=== PATIENT | male | born 1945 | race Caucasian/White ===

== ENCOUNTER 2017-05-04 11:39 | Emergency (ER) | payer OTHER ==
[2017-05-04 11:45] VITALS: BP 102/78; PULSE 68; RESP 18; TEMP 97.9; O2SAT 98
--- NOTE | 2017-05-04 12:18 | EDPHY ---
H & P Stated Complaint: L earache;fluid in ear; post nasal drip; sxs x 2 wks Time Seen by Provider: 05/04/17 12:10 HPI/ROS: CHIEF COMPLAINT: Left otalgia x2 weeks, rhinorrhea and sinus congestion HISTORY OF PRESENT ILLNESS: 72-year-old immunocompetent male visiting from [place] complaining of 2 weeks of left otalgia, sinus congestion, rhinorrhea. No sore throat. No chest pain. No dyspnea. No cough. No fever or chills. No nuchal rigidity . Nonsmoker. PRIMARY CARE PROVIDER: in [place] REVIEW OF SYSTEMS: A ten point review of systems was performed and is negative with the exception of the items mentioned in the HPI PAST MEDICAL & SURGICAL HISTORY: No pertinent medical or surgical history SOCIAL HISTORY:nonsmoker visiting from [place] PHYSICAL EXAM (Prior to examination, patient consented to physical exam, hands were washed and my usual and customary physical exam procedures followed) 1) GENERAL: Well-developed, well-nourished, alert and oriented. Appears to be in no acute distress. 2) HEAD: Normocephalic, atraumatic 3) HEENT: Pupils equal, round, reactive to light bilaterally. Sclera anicteric. Nasopharynx, oropharynx, clear, no lesions. No tonsillar enlargement no tonsillar exudate. Right ear: Clear EAC, TM nonbulging non erythematous. Left ear: Bulging erythematous tympanic membrane. EAC clear. Bilateral mastoid nontender non boggy. 4) NECK: Full range of motion, no meningeal signs. 5) LUNGS: Clear auscultation bilaterally, no wheezes, no rhonchi, no retractions. 6) HEART: Regular rate and rhythm, no murmur, no heave, no gallop. 7) ABDOMEN: No guarding, no rebound, no focal tenderness, negative McBurney', 8) MUSCULOSKELETAL: Moving all extremities, no focal areas of tenderness, no obvious trauma. No peripheral edema or discoloration. 9) BACK: No CVA tenderness. 10) SKIN: No rash, no petechiae. 11) Psychiatric: Patient is oriented X 3, there is no agitation. DIFFERENTIAL DIAGNOSIS: in no particular include but limited to otitis media, otitis externa, sinusitis - Personal History Current Tetanus Diphtheria and Acellular Pertussis (TDAP): No - Medical/Surgical History Other PMH: chronic L ear problems. gout. cholesterol. HTN - Social History Smoking Status: Never smoked Constitutional: Initial Vital Signs Temperature (C) 36.6 C 05/04/17 11:39 Heart Rate 68 05/04/17 11:39 Respiratory Rate 18 05/04/17 11:39 Blood Pressure 102/78 05/04/17 11:39 O2 Sat (%) 98 05/04/17 11:39 O2 Delivery Mode Room Air Allergies/Adverse Reactions: No Known Allergies Allergy (Unverified 05/04/17 11:45) Home Medications: Medication Instructions Recorded AZITHROMYCIN [Z-PACK] 500 mg PO DAILY #1 packet 05/04/17 Allopurinol [Allopurinol 300 MG 300 mg PO DAILY 05/04/17 (RX)] Aspirin [Aspirin 325 mg (*)] 325 mg PO DAILY 05/04/17 Atorvastatin Calcium [Lipitor 40 40 mg PO 05/04/17 mg (*)] Simvastatin [Zocor] 40 mg PO 05/04/17 Departure - Departure Disposition: Home, Routine, Self-Care Clinical Impression: Otitis media Qualifiers: Otitis media type: suppurative Chronicity: acute Laterality: left Recurrence: not specified as recurrent Spontaneous tympanic membrane rupture: without spontaneous rupture Qualified Code(s): H66.002 - Acute suppurative otitis media without spontaneous rupture of ear drum, left ear Sinusitis Qualifiers: Sinusitis location: frontal Chronicity: acute Recurrence: non-recurrent Qualified Code(s): J01.10 - Acute frontal sinusitis, unspecified Condition: Good Instructions: Otitis Media (ED) Additional Instructions: Return to the ER if you develop new or worsening symptoms, if you develop chest pain, shortness of breath or any other symptoms that concern you Referrals: Heidi Tidwell MD [Medical Doctor] - 2-3 days, call for appt. Prescriptions: AZITHROMYCIN [Z-PACK] 500 mg PO DAILY #1 packet
== END 2017-05-04 12:24 | disposition home or self-care (01) ==
DX: H66.002 Acute suppurative otitis media without spontaneous rupture of ear drum, left ear (principal); J01.10 Acute frontal sinusitis, unspecified; I10 Essential (primary) hypertension; Z79.82 Long term (current) use of aspirin